=== PATIENT | male | born 1960 | race Caucasian/White ===

== ENCOUNTER 2017-08-11 14:43 | Inpatient (IN) | payer OTHER ==
[~2017-08-11] VITALS: Ht 175.3 cm; Wt 81.6 kg
[2017-08-11] MEDS ORDERED: NEURONTIN (14:54)
[2017-08-11] MEDS ORDERED: MORP15TA7 PO (14:54)
[2017-08-11] MEDS ORDERED: FLEXERIL (14:54)
[2017-08-11] MEDS ORDERED: ONDANSETRON IV *ER 4 MG/2 ML VIAL IV ONE (15:06)
[2017-08-11] MEDS ORDERED: MORPHINE SULFATE 2 MG/1 ML DISP.SYRIN IV ONE (15:15)
[2017-08-11] MEDS ORDERED: PANTOPRAZOLE SODIUM 40 MG VIAL IV ONE (15:15)
[2017-08-11] MEDS ORDERED: IV NS 1000 ML 1,000 ML IV ONE ×2 (15:15→18:45)
[2017-08-11] MEDS ORDERED: MORPHINE SULFATE 2 MG/1 ML DISP.SYRIN ONE (15:17)
[2017-08-11] MEDS ORDERED: ONDANSETRON 4 MG/2 ML VIAL ONE (15:17)
[2017-08-11] MEDS ORDERED: PANTOPRAZOLE SODIUM 40 MG VIAL ONE (15:17)
[2017-08-11 15:35] LABS: BASOPHILS % (AUTO) 0.1 % (0.0-2.0); HEMOGLOBIN 12.8 g/dL (12.5-16.3); LYMPHOCYTES # (AUTO) 3.4 K/uL (20.0-40.0); LYMPHOCYTES % (AUTO) 17.1 % (20.5-51.5); MEAN CORPUSCULAR HEMOGLOBIN 33.4 uug (23.8-33.4); MEAN CORPUSCULAR HGB CONC 34 g/dL (32.5-36.3); MEAN CORPUSCULAR VOLUME 99.2 fL (73.0-96.2); MONOCYTES # (AUTO) 1.6 K/uL (2.0-10.0); MONOCYTES % (AUTO) 7.8 % (0.0-11.0); NEUTROPHILS # (AUTO) 15.1 K/uL (1.8-8.9); PLATELET COUNT (AUTO) 295 K/uL (152-348); RED BLOOD CELL COUNT(AUTO) 3.83 MIL/uL (4.06-5.63); WHITE BLOOD COUNT (AUTO) 20.1 K/uL (3.6-10.2)
[2017-08-11 15:45] LABS: CREATININE 0.8 mg/dL (0.6-1.3); POTASSIUM 3.7 mmol/L (3.5-5.1)
[2017-08-11 15:51] LABS: BILIRUBIN,TOTAL 0.7 mg/dL (0.2-1.0); TOTAL PROTEIN, SERUM 7.5 g/dL (6.4-8.2)
[2017-08-11 17:26] LABS: *BILIRUBIN,URIN NEGATIVE (NEGATIVE); *BLOOD, URINE Trace-intact (NEGATIVE); *CLARITY,URINE CLOUDY (CLEAR); *COLOR,URINE YELLOW (YELLOW); *KETONES,URINE NEGATIVE (NEGATIVE); *PROTEIN,URINE NEGATIVE (NEGATIVE); *UROBILINOGEN,URINE 0.2 E.U./dl (NORMAL); LEUKOCYTE ESTERASE ,URINE NEGATIVE (NEGATIVE); NITRITE, URINE NEGATIVE (NEGATIVE); UGLUCOSE NEGATIVE (NEGATIVE)
[2017-08-11] MEDS ORDERED: MORPHINE SULFATE 4 MG/1 ML DISP.SYRIN ONE ×3 (17:29→20:51)
[2017-08-11] MEDS ORDERED: MORPHINE SULFATE 4 MG/1 ML DISP.SYRIN IV ONE ×3 (17:30→20:45)
[2017-08-11 17:37] LABS: BACTERIA,URINE NONE SEEN /HPF (NONE SEEN); RBC,URINE 0-3 /HPF (0-3); SQUAMOUS EPITHELIAL CELL,UR NONE SEEN /HPF (NONE SEEN); WBC,URINE 0-3 /HPF (0-3)
[2017-08-11 17:38] LABS: URINE AMORPHOUS PHOSPHATES MODERATE /HPF
[2017-08-11] MEDS ORDERED: IOHEXOL 300MG/ML 100 ML INFUS..BTL ONE (17:39)
[2017-08-11] MEDS ORDERED: NORMAL SALINE FLUSH 10 ML DISP.SYRIN ONE (17:39)
[2017-08-11] MEDS ORDERED: IV NORMAL SALINE 100 ML ONE (17:39)
[2017-08-11] MEDS ORDERED: CIPROFLOXACIN IV 400 MG in PREMIXED 1 EACH IV SCH (18:35)
[2017-08-11] MEDS ORDERED: METRONIDAZOLE 500 MG/NS 100 ML PIGGYBACK IV ONE (18:45)
--- NOTE | 2017-08-11 18:55 | NUR ---
mse completed, all meds admin, pt w/o s/s of distress
--- NOTE | 2017-08-11 19:05 | NUR ---
sbar report to moi allred
--- NOTE | 2017-08-11 19:09 | NUR ---
Received SBAR report from Luis Eduardo VANN.
--- NOTE | 2017-08-11 19:17 | NUR ---
Patient reports pain 11/05. MD notified.
--- NOTE | 2017-08-11 19:28 | NUR ---
Dr Brown spoke with Dr Travis Nguyen for consult
--- NOTE | 2017-08-11 19:31 | NUR ---
Dr Brown spoke with Dr Juan Carlos Bhatt for consult
--- NOTE | 2017-08-11 19:31 | NUR ---
Paged [facility] panel as requested by Dr Brown. Waiting for Dr Rodriguez to call back
--- NOTE | 2017-08-11 20:23 | NUR ---
Passed report to Chrissy Cohen.
--- NOTE | 2017-08-11 20:30 | NUR ---
Dr. Nguyen at bedside.
--- NOTE | 2017-08-11 20:52 | NUR ---
Dr. Thomas at bedside.
--- NOTE | 2017-08-11 20:52 | NUR ---
Dr. Olmedo on phone with Dr. Brown.
[2017-08-11] MEDS ORDERED: ONDANSETRON 4 MG/2 ML VIAL IV PRN (21:30)
[2017-08-11] MEDS ORDERED: ACETAMINOPHEN 650 MG SUPP.RECT RC PRN (21:30)
[2017-08-11] MEDS: MORPHINE SULFATE 4 MG/1 ML DISP.SYRIN IV PRN (22:28)
[2017-08-11] MEDS ORDERED: LEVOFLOXACIN 500 MG/D5W 100 ML ONE (22:36)
[2017-08-11] MEDS ORDERED: METRONIDAZOLE 500 MG/NS 100ML 100 ML IV ONE (22:36)
[2017-08-11] MEDS: LEVOFLOXACIN 500 MG/D5W 500 MG in PREMIXED 1 EACH IV SCH (22:56)
[2017-08-11] MEDS: POTASSIUM CHLORIDE 20 MEQ in IV D5 1/2 NS 1000 ML 1,000 ML IV PRN (22:58)
[2017-08-11 23:00] VITALS: BP 122/86
--- NOTE | 2017-08-11 23:00 | NUR ---
NURSING CLINICAL NOTE: Received pt from ED with a diagnosis of abdominal pain. A&O X 4.On RA, sating well. complains of sever abdominal pain managed with morphine. pt denies any SOB or distress at this time, will continue to monitor for any changes on the patient's condition.
--- NOTE | 2017-08-11 23:57 | NUR ---
NURSING CLINICAL NOTE: Pt requested to be DNR/DNI, . Phillip made aware of the patient's request.
[2017-08-12] MEDS: MORPHINE SULFATE 4 MG/1 ML DISP.SYRIN IV PRN ×5 (02:41→16:22)
[2017-08-12 04:11] VITALS: BP 112/55
[2017-08-12] MEDS: METRONIDAZOLE 500 MG/NS 100ML 500 MG in PREMIXED 1 EACH IV SCH ×3 (06:12→21:13)
--- NOTE | 2017-08-12 07:10 | NUR ---
Received report from retail shift manager nurse, patient in bed awake complaining of severe pain on right abdomen and a severe headache. Reviewed patients medication history to note pain medication received an hour ago. Informed patient that contact with the doctor will be made at his request.
[2017-08-12 08:04] LABS: BASOPHILS % (AUTO) 0.2 % (0.0-2.0); EOSINOPHILS % (AUTO) 0.1 % (0.0-7.0); HEMATOCRIT 34.8 % (36.7-47.1); HEMOGLOBIN 11.9 g/dL (12.5-16.3); LYMPHOCYTES # (AUTO) 2.7 K/uL (20.0-40.0); LYMPHOCYTES % (AUTO) 15.1 % (20.5-51.5); MEAN CORPUSCULAR HEMOGLOBIN 33.7 uug (23.8-33.4); MEAN CORPUSCULAR HGB CONC 34 g/dL (32.5-36.3); MEAN CORPUSCULAR VOLUME 98.7 fL (73.0-96.2); MONOCYTES # (AUTO) 2.4 K/uL (2.0-10.0); MONOCYTES % (AUTO) 13.6 % (0.0-11.0); NEUTROPHILS # (AUTO) 12.6 K/uL (1.8-8.9); PLATELET COUNT (AUTO) 227 K/uL (152-348); RED BLOOD CELL COUNT(AUTO) 3.52 MIL/uL (4.06-5.63); WHITE BLOOD COUNT (AUTO) 17.8 K/uL (3.6-10.2)
[2017-08-12 08:24] LABS: CREATININE 0.8 mg/dL (0.6-1.3); MAGNESIUM 1.6 mg/dL (1.8-2.4); PHOSPHOROUS 2.8 mg/dL (2.5-4.9); POTASSIUM 3.9 mmol/L (3.5-5.1); TOTAL PROTEIN, SERUM 6.6 g/dL (6.4-8.2)
[2017-08-12] MEDS ORDERED: MORPHINE SULFATE 4 MG/1 ML DISP.SYRIN IV STA (08:28)
[2017-08-12] MEDS: FAMOTIDINE. 20 MG/2 ML VIAL IV SCH ×2 (08:47→20:01)
[2017-08-12] MEDS: POTASSIUM CHLORIDE 20 MEQ in IV D5 1/2 NS 1000 ML 1,000 ML IV PRN (11:51)
[2017-08-12 12:00] VITALS: BP 101/55
[2017-08-12 12:08] VITALS: BP 92/45
[2017-08-12] MEDS: MAGNESIUM SULFATE/D5W 100 ML IV SCH ×2 (15:15→17:55)
[2017-08-12 16:11] VITALS: BP 125/50
[2017-08-12] MEDS ORDERED: KETOROLAC TROMETHAMINE 15 MG INJ IVP PRN (17:45)
--- NOTE | 2017-08-12 18:22 | NUR ---
Patient continues to have increased pain levels throughout the day. Pain medication orders increased to 6mg [id number] for severe pain. Patient is extremely agitated with stay here in the hospital. Currently he is in bed, bed in low position, side rails up x2.
[2017-08-12 20:32] VITALS: BP 107/66
[2017-08-12] MEDS: LEVOFLOXACIN 500 MG/D5W 500 MG in PREMIXED 1 EACH IV SCH (21:13)
[2017-08-13] MEDS: POTASSIUM CHLORIDE 20 MEQ in IV D5 1/2 NS 1000 ML 1,000 ML IV PRN (01:46)
[2017-08-13] MEDS: MORPHINE SULFATE 4 MG/1 ML DISP.SYRIN IV PRN ×2 (01:47→08:22)
[2017-08-13] MEDS: METRONIDAZOLE 500 MG/NS 100ML 500 MG in PREMIXED 1 EACH IV SCH (05:47)
[2017-08-13 05:53] VITALS: BP 102/56
[2017-08-13 06:30] LABS: BASOPHILS % (AUTO) 0.3 % (0.0-2.0); EOSINOPHILS % (AUTO) 0.3 % (0.0-7.0); HEMATOCRIT 35.5 % (36.7-47.1); HEMOGLOBIN 12.1 g/dL (12.5-16.3); LYMPHOCYTES # (AUTO) 3.4 K/uL (20.0-40.0); LYMPHOCYTES % (AUTO) 23.6 % (20.5-51.5); MEAN CORPUSCULAR HEMOGLOBIN 33.9 uug (23.8-33.4); MEAN CORPUSCULAR HGB CONC 34 g/dL (32.5-36.3); MEAN CORPUSCULAR VOLUME 99.4 fL (73.0-96.2); MONOCYTES # (AUTO) 1.7 K/uL (2.0-10.0); MONOCYTES % (AUTO) 11.4 % (0.0-11.0); NEUTROPHILS # (AUTO) 9.4 K/uL (1.8-8.9); NEUTROPHILS % (AUTO) 64.4 % (38.5-71.5); PLATELET COUNT (AUTO) 210 K/uL (152-348); RED BLOOD CELL COUNT(AUTO) 3.57 MIL/uL (4.06-5.63); WHITE BLOOD COUNT (AUTO) 14.5 K/uL (3.6-10.2)
[2017-08-13 06:45] LABS: BILIRUBIN,TOTAL 1.7 mg/dL (0.2-1.0); CREATININE 0.8 mg/dL (0.6-1.3); MAGNESIUM 2.2 mg/dL (1.8-2.4); PHOSPHOROUS 2.5 mg/dL (2.5-4.9); POTASSIUM 3.8 mmol/L (3.5-5.1); TOTAL PROTEIN, SERUM 6.4 g/dL (6.4-8.2)
--- NOTE | 2017-08-13 07:10 | NUR ---
RECEIVED REPORT FROM SQL CONSULTANT NURSE, PATIENT IN BED ASLEEP BUT AROUSABLE, NO EVIDENCE OF DISTRESS NOTED AT THIS TIME, BED IN LOW POSITION, SIDE RAILS UP X2.
[2017-08-13] MEDS: FAMOTIDINE. 20 MG/2 ML VIAL IV SCH (08:16)
--- NOTE | 2017-08-13 08:50 | NUR ---
TEXTED DR. DOOLEY FOR MRI APPROVAL.
--- NOTE | 2017-08-13 09:45 | NUR ---
Patient left AMA.
== END 2017-08-13 09:45 | disposition left against medical advice (07) ==
LOC: ER 14:43 → MED 21:17
PROVIDERS: ADMIT Internal Medicine; ATTEND Internal Medicine
DX: K80.42 Calculus of bile duct with acute cholecystitis without obstruction (principal); R00.1 Bradycardia, unspecified; D72.828 Other elevated white blood cell count; F10.11 Alcohol abuse, in remission; D50.9 Iron deficiency anemia, unspecified; F17.210 Nicotine dependence, cigarettes, uncomplicated; G89.29 Other chronic pain; R74.0 Nonspecific elevation of levels of transaminase and lactic acid dehydrogenase [LDH]; M54.9 Dorsalgia, unspecified; Z90.49 Acquired absence of other specified parts of digestive tract; R33.9 Retention of urine, unspecified
CPT/HCPCS: 36415; 70030-TC; 71045; 83690; 83735; 84100; 85025; 85610; 93005; A4663; C9113; J0744; J1885; J1956; J2270; J2405; J3475; J3480; J3490; J7030; Q9967